=== PATIENT | female | born 1995 | race Two or more races ===

== ENCOUNTER 2021-07-22 08:07 | Emergency (ER) | payer OTHER ==
[~2021-07-22] VITALS: Ht 157.5 cm; Wt 60.3 kg
[2021-07-22] MEDS ORDERED: ZITHROMAX500 MG PO (11:24)
[2021-07-22] MEDS ORDERED: TUSSI PRES-B L480 ML PO (11:24)
[2021-07-22] MEDS ORDERED: TESSALON PERLE100 M1 PO (11:24)
== END 2021-07-22 11:31 | disposition home or self-care (01) ==
LOC: ER 08:07 → EDBD 08:20 → ER 08:20
DX: R05.9 Cough, unspecified (principal); Z03.818 Encounter for observation for suspected exposure to other biological agents ruled out

== ENCOUNTER 2021-08-13 14:49 | Emergency (ER) | payer OTHER ==
[~2021-08-13] VITALS: Ht 157.5 cm; Wt 56.2 kg
[~2021-08-13 14:49] MED LIST: TESSALON PERLE100 M1 PO; TUSSI PRES-B L480 ML PO; ZITHROMAX500 MG PO
== END 2021-08-14 00:45 | disposition home or self-care (01) ==
LOC: ER 14:49
DX: R51.9 Headache, unspecified (principal); R33.9 Retention of urine, unspecified; R42 Dizziness and giddiness; E86.0 Dehydration; V49.40XA Driver injured in collision with unspecified motor vehicles in traffic accident, initial encounter; Y92.410 Unspecified street and highway as the place of occurrence of the external cause
CPT/HCPCS: 70450; 70490; 74177; Q9965